=== PATIENT | female | born 1935 | race Caucasian/White ===

== ENCOUNTER → 2016-09-20 | Outpatient (CLI) | payer OTHER, MEDICARE ==
[~2016-09-20] MED LIST: ASPCH81X PO; CHOL20009 PO; LEVO50TA6 PO; LISI-729 PO
[2016-09-20 14:51] LABS: BLOOD UREA NITROGEN 18 mg/dl (7-18); BUN/CREATININE RATIO 21.6 (10-20); CALCIUM 9.4 mg/dl (8.5-10.1); CARBON DIOXIDE 33 mmol/L (21-32); CHLORIDE 108 mmol/L (98-107); CREATININE 0.81 mg/dl (0.60-1.20); GLUCOSE 96 mg/dl (70-99); POTASSIUM 4.1 mmol/L (3.5-5.1); SODIUM 144 mmol/L (136-145)
== END | disposition home or self-care (01) ==
LOC: C.LABBC 09:44
PROVIDERS: ATTEND Internal Medicine
DX: E03.9 Hypothyroidism, unspecified (principal); I10 Essential (primary) hypertension; E55.9 Vitamin D deficiency, unspecified

== ENCOUNTER → 2016-09-30 | Outpatient (CLI) | payer OTHER, MEDICARE ==
--- NOTE | 2016-10-01 08:50 | DIAGNOSTIC IMAGING REPORT ---
THYROID ULTRASONOGRAPHY CLINICAL HISTORY: Thyroid nodule COMPARISON STUDY: 04/19/2016 FINDINGS: The right lobe of the thyroid measures 36 x 12 x 12 mm. The left lobe of the thyroid measures 30 x 8 x 10 mm. Both lobes of thyroid are heterogeneous in echotexture. The previously described right lobe thyroid nodule appears relatively isoechoic to the remaining gland. It is unclear whether this represents a true mass. This area measures 8 mm in diameter. IMPRESSION: 1. Diffusely heterogeneous thyroid gland 2. The previously described nodule is more difficult to discern on today's study and is relatively isoechoic with the remainder of the gland. It measures 8 mm in long axis. Electronically signed by: Josiah Richardson M.D. 10/01/2016 8:49 AM Dictated Date/Time: 10/01/2016 8:47 AM
== END | disposition home or self-care (01) ==
LOC: C.ULTR 15:14
PROVIDERS: ATTEND Internal Medicine
DX: E04.1 Nontoxic single thyroid nodule (principal)

== ENCOUNTER → 2016-10-15 | Outpatient (CLI) | payer OTHER, MEDICARE ==
--- NOTE | 2016-10-16 14:53 | MAMMOGRAPHY REPORT ---
BILATERAL DIGITAL SCREENING MAMMOGRAM WITH CAD: 10/15/2016 CLINICAL HISTORY: Routine screening. Patient has no complaints. TECHNIQUE: Bilateral CC and MLO views were obtained. Current study was also evaluated with a Comput er Aided Detection (CAD) system. COMPARISON: Comparison is made to exams dated: 04/18/2015 mammogram, 04/14/2014 mammogram, 04/13/20 13 mammogram, 04/09/2012 mammogram, 03/12/2011 mammogram, and 03/08/2010 mammogram - [facility]. BREAST COMPOSITION: There are scattered areas of fibroglandular density in both breasts. FINDINGS: There are mild vascular calcifications in both breasts. A benign rim calcification withi n the left breast. No new suspicious mass, architectural distortion or cluster of microcalcification s is seen. IMPRESSION: ACR BI-RADS CATEGORY 2: BENIGN There is no mammographic evidence of malignancy. A 1 year screening mammogram is recommended. The p atient will receive written notification of the results. Approximately 10% of breast cancers are not detected with mammography. A negative mammographic repor t should not delay biopsy if a clinically suggestive mass is present. Mary Lou Carter M.D. ay/:10/15/2016 16:32:15 Aircraft Lay Out Worker: Tatyana WERNER(R)(M), [facility] letter sent: Normal 1/2 BI-RADS Code: ACR BI-RADS Category 2: Benign
== END | disposition home or self-care (01) ==
LOC: C.MAMM 14:35
PROVIDERS: ATTEND Internal Medicine
DX: Z12.31 Encounter for screening mammogram for malignant neoplasm of breast (principal)

== ENCOUNTER → 2017-09-30 | Outpatient (CLI) | payer OTHER, MEDICARE ==
[2017-09-30 11:00] LABS: HEMATOCRIT 41.2 % (37-47); HEMOGLOBIN 13.6 g/dL (12.0-16.0); MEAN CELL VOLUME 93.6 fL (80-100); MEAN CORPUSCULAR HEMOGLOBIN 30.9 pg (25-34); MEAN PLATELET VOLUME 10.6 fL (7.4-10.4); PLATELET COUNT 225 K/uL (130-400); RED CELL DISTRIBUTION WIDTH CV 13.4 % (11.5-14.5); RED CELL DISTRIBUTION WIDTH SD 45.9 fL (36.4-46.3); WHITE BLOOD COUNT 5.28 K/uL (4.8-10.8)
[2017-09-30 14:15] LABS: BLOOD UREA NITROGEN 9 mg/dl (7-18); CARBON DIOXIDE 30 mmol/L (21-32); CREATININE 0.82 mg/dl (0.60-1.20); GLUCOSE 86 mg/dl (70-99); POTASSIUM 3.8 mmol/L (3.5-5.1); SODIUM 139 mmol/L (136-145)
== END | disposition home or self-care (01) ==
LOC: C.LABBC 09:18
PROVIDERS: ATTEND Internal Medicine
DX: I10 Essential (primary) hypertension (principal); E03.9 Hypothyroidism, unspecified; D64.9 Anemia, unspecified

== ENCOUNTER 2024-01-15 05:04 | Observation (INO) ==
[2024-01-15] MEDS: METOPROLOL TARTRATE 1 MG/ML VIAL IV STA (06:16)
[2024-01-15 06:18] LABS: Alanine Aminotransferase 17 U/L (7-52); Albumin Level 4.4 gm/dl (3.4-5.0); Alkaline Phosphatase 47 U/L (34-104); Anion Gap 9 (3-11); BUN Creatinine Ratio 16.2 (10-20); Bilirubin,Total 1.5 mg/dl (0.2-1.0); Blood Urea Nitrogen 12 mg/dl (6-23); Calcium 9.4 mg/dl (8.6-10.3); Carbon Dioxide 23 mmol/L (21-32); Chloride 101 mmol/L (98-107); Creatinine Clr Calc Pharmacy 41.7 ml/min; Est GFR (African American) 83.2 ml/min; Est GFR (Non-African American) 71.8 ml/min; Globulin 2.2 gm/dl (2.5-4.0); Glucose 103 mg/dl (70-99(Fasting)); Lipase 17 U/L (11-82); Sodium 133 mmol/L (136-145); Total Protein 6.6 gm/dl (6.0-8.3); Troponin I High Sensitivity 9.2 pg/ml (0-14)
--- NOTE | 2024-01-15 06:19 | Emergency Department Note ---
Impression & Plan Bright red rectal bleeding, Atrial fibrillation with rapid ventricular response, Colitis ED Provider Note Provider: Sin Romano MD DATE OF SERVICE: 01/14/2024 CHIEF COMPLAINT: Rectal bleeding abdominal cramping HISTORY OF PRESENT ILLNESS: Patient is a 88-year-old female history of hypertension, hypothyroidism, paroxysmal atrial fibrillation on Eliquis presenting here today from home with reports that yesterday afternoon began develop some abdominal cramping and nausea. Was golfing during this time and seen by EMS. Declined transfer and came home. No sick contacts or recent travel. No syncope or trauma. Reports ongoing cramping and some nausea but no vomiting last evening. Diarrhea developed multiple recurrent bloody bowel movements. Again no syncope chest pain or shortness of breath. Did not take her evening Eliquis which she is normally on as she was having this bleeding. Overnight bloody diarrhea continued and given this came in for evaluation as she did not want to "run out of blood ". While here did go to the bathroom and have a small bloody stool. PAST MEDICAL HISTORY: As noted above MEDICATIONS: Reviewed home medications on Eliquis but did not take last evening SOCIAL HISTORY: PHYSICAL EXAM: GENERAL: alert and oriented in no acute distress on stretcher, at bedside Head: normocephalic and atraumatic EYES: No injection, discharge or icterus. NECK: Trachea midline. ENT: Mucous membranes pink and moist. LUNGS: Airway patent. No retractions. Breath sounds clear HEART: Irregular tachycardic rate and rhythm. No chest wall tenderness ABDOMEN: Soft no guarding. Slight mid tenderness without peritonitis. SKIN: Acyanotic, warm, dry, without rashes EXTREMITIES: Without swelling, tenderness or deformity NEUROLOGICAL: No focal deficits. No aphasia. No facial droop or slurred speech. Ambulatory. EK bpm normal sinus rhythm no PVC or PAC. No acute ST segment elevation depression with some lateral inferior nonspecific T wave changes and ST segment changes. QTc 432. EK bpm. Atrial fibrillation with rapid ventricular spots. Some T wave changes and slight lateral/inferior ST depression without acute ST segment elevation and QTc of 459. EK bpm sinus rhythm occasional PAC, no acute ST segment elevation depression with some slight inferior lateral ST/T wave changes. CONTINUOUS CARDIAC MONITORING: was ordered and showed a heart rate of 80s to 160s bpm in normal sinus rhythm and later A-fib to normal sinus rhythm in the 60s-70s Patient's laboratory studies and imaging reviewed. Differential includes Diverticulosis, AVM, coagulopathy, colitis, inflammatory bowel disease, malignancy, Ladan-Rodriguez tear, esophagitis, peptic ulcer disease, variceal bleed, gastritis, epistaxis, fissure, hemorrhoids, as well as other pathologies. IMPRESSION/MEDICAL DECISION MAKING: Patient well-appearing. Not hypotensive. While here had a bloody bowel movement then she developed rapid A-fib. Bright red blood in the toilet but not a exceedingly large amount. Patient did not take her evening dose of Eliquis --helpful in the situation. Given some IV metoprolol help with rate control minimal effect and tried some diltiazem bolus. Blood work obtained. Will send for CT scan and stool testing ordered to look for any infectious cause of her symptoms and exclude diverticulitis. IV Protonix dose given although seems less likely be upper GI bleed. Patient without active chest pain or shortness of breath. Blood work here without severe hyponatremia or elevated BUN. Normal creatinine. No significant transaminitis. Troponin normal and no evidence of pancreatitis on initial labs. CBC returns slight leukocytosis of 12.3. Hemoglobin stable at 13.2. Platelets in the normal range. Likely no significant new anemia. CT the abdomen pelvis shows distal transverse colon/splenic flexure/descending colon thickening consistent with colitis nonspecific in nature without evidence of free air, abscess, or pneumatosis. No diverticulitis noted. Reassessment the patient denies any real significant abdominal pain and denies nausea. Patient without any severe abdominal pain and again anticoagulated I doubt this represents ischemic bowel. Diltiazem bolus was effective in converting the patient back to a sinus rhythm without the need for diltiazem infusion. With patient's anticoagulated status and ongoing rectal bleed as well as age and comorbidities recommended further observation here. Hospitalist team was consulted. DIAGNOSIS: Rectal bleeding, colitis, rapid A-fib, long-term anticoagulation DISPOSITION: Hospitalist will evaluate Patient was agreeable with this plan. Critical Care I have personally spent 32 minutes of critical care time in the direct management of this patient. This includes bedside care, interpretation of diagnostic studies, and testing, discussion with consultants, patient, and family members, and other required patient management activities. These 32 minutes is in excess of all separately billable procedures. Past Med/Surg History Problem List (Updated 01/15/24 @ 06:58 by Sin Romano M.D.) Colitis (Acute) Atrial fibrillation with rapid ventricular response (Acute) Bright red rectal bleeding (Acute) Holter monitor, abnormal Paroxysmal A-fib Altered heart rate Bradycardia Abnormal ankle brachial index (Acute) Chronic venous insufficiency Wound of right lower extremity Wound of left lower extremity Right patellofemoral syndrome Right knee DJD Vitamin D deficiency (Acute) Spinal stenosis (Acute) Solitary thyroid nodule (Acute) SCC (squamous cell carcinoma) (Acute) Osteopenia (Acute) Lichen simplex chronicus (Chronic) Hypothyroidism (Acute) Hypertension (Acute) Basal cell carcinoma of skin of face (Acute) Anemia (Acute) Actinic keratosis (Acute) Medical History Elevated vitamin B12 level Non-healing wound of right lower extremity Fx upper humerus-closed History of basal cell carcinoma History of SCC (squamous cell carcinoma) of skin Dermatitis Angioma Surgical History Status post Mohs surgery H/O blepharoplasty H/O oral surgery Humerus surgical neck fracture History of hysterectomy Hx of tonsillectomy Family History Father Myocardial infarction Heart disease Mother Hypertension Grandfather (Paternal) Diabetes Denies family history of Colon cancer Ovarian cancer Prostate cancer Breast cancer Social History Smoking Status: Never smoker Second Hand Exposure: No; Do You Dip or Chew Tobacco: No; Hx Alcohol Use: Yes (2 mixed drinks daily ) Alcohol Intake Frequency: 4 or More x per/Week Hx Substance Use: No Preferred Language: Austrian Visual Impairment: No Limitations Hearing Ability: Normal marital status: Current Living Situation: Spouse current occupational status: retired 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 Feels Safe at Home: Yes Childhood Exposure to Second-Hand Smoke: Yes Dental Care, Regularly: Yes Physical Activity Frequency: Daily Seatbelt Use: always Sunscreen Use: Yes Allergies Allergies Allergy/AdvReac Type Severity Reaction Status Date / Time codeine AdvReac Unknown vomiting Verified 01/06/24 13:27 Home Meds Home Medications Medication Instructions Recorded Confirmed cholecalciferol (vitamin D3) 50 2,000 units PO DAILY #30 caps 12/31/18 01/06/24 mcg (2,000 unit) capsule cyanocobalamin (vitamin B-12) 2,000 mcg PO .COMPLEX 11/07/22 01/06/24 2,000 mcg tablet,extended release Previous Rx's Medication Instructions Recorded metoprolol succinate 25 mg 25 mg PO DAILY #90 tabs 07/07/23 tablet,extended release 24 hr betamethasone dipropionate 0.05 % 1 applic topical BID #15 grams 09/04/23 topical ointment lisinopril 10 mg tablet 10 mg PO DAILY #30 tabs 10/02/23 levothyroxine 75 mcg tablet 75 mcg PO DAILY #30 tabs 12/08/23 apixaban 2.5 mg tablet (Eliquis) 2.5 mg PO BID #180 tabs 01/06/24 Results & Data (ED) Vital Signs Vital Signs - 24 hr 01/15/24 05:06 01/15/24 05:21 01/15/24 05:34 Temperature 36.5 C Temperature Source Temporal Artery Scan Pulse Rate 82 88 Pulse Rate [Right Finger] Pulse Rhythm Regular Pulse Strength Normal Pulse Strength [Right Finger] Respiratory Rate 16 Respiratory Effort / Characteristics Non-Labored Spontaneous Respiratory Depth Normal Respiratory Pattern Regular Blood Pressure 143/88 H Blood Pressure [Right Arm] Blood Pressure Mean 106 Blood Pressure Mean [Right Arm] Blood Pressure Position Sitting Blood Pressure Position [Right Arm] Pulse Oximetry 99 99 Oxygen Delivery Method Room Air Room Air Sepsis Recent Fever Within 48 Hours No Sepsis New/Unexplained Change in Mental Status N/A Sepsis Action Taken by Nursing No Action Required 01/15/24 06:06 01/15/24 06:08 01/15/24 06:08 Temperature Temperature Source Pulse Rate 140 H 145 H Pulse Rate [Right Finger] Pulse Rhythm Pulse Strength Pulse Strength [Right Finger] Respiratory Rate 18 Respiratory Effort / Characteristics Respiratory Depth Respiratory Pattern Blood Pressure 154/119 H 154/119 H Blood Pressure [Right Arm] Blood Pressure Mean 126 126 Blood Pressure Mean [Right Arm] Blood Pressure Position Blood Pressure Position [Right Arm] Pulse Oximetry 95 Oxygen Delivery Method Sepsis Recent Fever Within 48 Hours Sepsis New/Unexplained Change in Mental Status Sepsis Action Taken by Nursing 01/15/24 06:16 01/15/24 06:22 01/15/24 06:50 Temperature Temperature Source Pulse Rate 171 H 140 H 97 H Pulse Rate [Right Finger] Pulse Rhythm Pulse Strength Pulse Strength [Right Finger] Respiratory Rate 18 Respiratory Effort / Characteristics Respiratory Depth Respiratory Pattern Blood Pressure 154/119 H 150/106 H Blood Pressure [Right Arm] Blood Pressure Mean 121 Blood Pressure Mean [Right Arm] Blood Pressure Position Blood Pressure Position [Right Arm] Pulse Oximetry 98 Oxygen Delivery Method Sepsis Recent Fever Within 48 Hours Sepsis New/Unexplained Change in Mental Status Sepsis Action Taken by Nursing 01/15/24 06:59 Temperature Temperature Source Pulse Rate Pulse Rate [Right Finger] 69 Pulse Rhythm Pulse Strength Pulse Strength [Right Finger] Normal Respiratory Rate 17 Respiratory Effort / Characteristics Non-Labored Respiratory Depth Normal Respiratory Pattern Regular Blood Pressure Blood Pressure [Right Arm] 117/69 Blood Pressure Mean Blood Pressure Mean [Right Arm] 85 Blood Pressure Position Blood Pressure Position [Right Arm] Lying Pulse Oximetry 97 Oxygen Delivery Method Room Air Sepsis Recent Fever Within 48 Hours Sepsis New/Unexplained Change in Mental Status Sepsis Action Taken by Nursing Laboratory Data 01/15/24 05:30 01/15/24 05:59 Lab Results 01/15/24 01/15/24 Range/Units 05:30 05:59 WBC 12.37 H (4.8-10.8) K/ul RBC 4.24 (4.20-5.40) M/uL Hgb 13.2 (12.0-16.0) g/dl Hct 38.8 (37.0-47.0) % MCV 91.5 (80.0-100.0) fL MCH 31.1 (25.0-34.0) pg MCHC 34.0 (32.0-36.0) g/dL RDW Std Deviation 41.2 (36.4-46.3) fL RDW Coeff of Sunita 12.6 (11.5-14.5) % Plt Count 151 (130-400) K/uL MPV 10.8 (9.4-12.4) fL Immature Gran % (Auto) 0.3 % Neut % (Auto) 76.5 % Lymph % (Auto) 16.0 % [place] % (Auto) 6.7 % Eos % (Auto) 0.3 % Baso % (Auto) 0.2 % Neut # (Auto) 9.45 H (1.40-6.50) K/uL Lymph # (Auto) 1.98 (1.20-3.40) K/uL [place] # (Auto) 0.83 H (0.11-0.59) K/uL Eos # (Auto) 0.04 (0.00-0.50) K/uL Baso # (Auto) 0.03 (0.00-0.20) K/uL Immature Gran # (Auto) 0.04 (0.01-0.20) K/uL Platelet Estimate Decreased L (Normal) RBC Morphology Unremarkable PT Cancelled 11.0 INR Cancelled 1.0 APTT Cancelled 27 PTT Ratio Cancelled 1.0 Sodium 133 L (136-145) mmol/L Potassium TNP 3.7 Chloride 101 (98-107) mmol/L Carbon Dioxide 23 (21-32) mmol/L Anion Gap 9 (3-11) BUN 12 (6-23) mg/dl Creatinine 0.74 (0.6-1.2) mg/dl Est Cr Clr Drug Dosing 41.7 ml/min Est GFR ( Amer) 83.2 ml/min Est GFR (Non-Af Amer) 71.8 ml/min BUN/Creatinine Ratio 16.2 (10-20) Glucose 103 H (70-99(Fasting)) mg/dl Calcium 9.4 (8.6-10.3) mg/dl Total Bilirubin 1.5 H (0.2-1.0) mg/dl AST TNP 18 ALT 17 (7-52) U/L Alkaline Phosphatase 47 (34-104) U/L Troponin I High Sens 9.2 (0-14) pg/ml Total Protein 6.6 (6.0-8.3) gm/dl Albumin 4.4 (3.4-5.0) gm/dl Globulin 2.2 L (2.5-4.0) gm/dl Albumin/Globulin Ratio 2.0 (0.9-2) Lipase 17 (11-82) U/L Administered Medications Sodium Chloride (Nss) 500 mls @ 999 mls/hr IV .Q31M ONE Stop: 01/15/24 07:25 Last Admin: 01/15/24 07:01 Dose: 999 mls/hr Documented By: SHB Discontinued Medications Diltiazem HCl (Diltiazem Hcl 5 Mg/Ml 5 Ml Vial) 15 mg IV NOW STA Stop: 01/15/24 06:21 Last Admin: 01/15/24 06:23 Dose: 15 mg Documented By: PATRICIA Co-signed By: CAM Pantoprazole Sodium 80 mg/ (Dextrose) 120 mls @ 480 mls/hr IV ONE STA Stop: 01/15/24 06:25 Last Infusion: 01/15/24 07:04 Dose: Infused Documented By: Admin: 01/15/24 06:45 Dose: 480 mls/hr Documented By: PATRICIA Ioversol (Optiray 320 100ml) 100 ml IV ONCE ONE Stop: 01/15/24 06:43 Last Admin: 01/15/24 06:42 Dose: 93 ml Documented By: [place] Metoprolol Tartrate (Metoprolol Tartrate 1 Mg/Ml Vial) 5 mg IV NOW STA Stop: 01/15/24 06:12 Last Admin: 01/15/24 06:16 Dose: 5 mg Documented By: PATRICIA Miscellaneous (Stat Iv Infusion Titration Per Protocol) 1 each N/A NOW STA Stop: 01/15/24 06:21 Last Admin: 01/15/24 07:11 Dose: Not Given Documented By: BECK Imaging Data Radiologist's Impression: Abdomen/Pelvis CT 01/15/24 05:12 CT OF THE ABDOMEN AND PELVIS WITH CONTRAST CLINICAL HISTORY: Rectal bleeding. Abdominal pain. COMPARISON STUDY: None. TECHNIQUE: Following IV administration of 93 mL of Optiray, axial images of the abdomen and pelvis were obtained from the lung bases to the proximal femurs. Images were reviewed in the axial, sagittal, and coronal planes. IV contrast was administered without complication. Automated exposure control was utilized for the study. A dose lowering technique was utilized adhering to the principles of ALARA. CT DOSE: 496. mGy.cm FINDINGS: Lung bases are unremarkable. No pneumatosis, free air or portal venous gas is present. There are no hepatic lesions. There is no biliary or pancreatic ductal dilatation. Spleen, adrenal glands, kidneys and pancreas are unremarkable. A few subcentimeter right renal lesions likely reflect cysts. There is no hydronephrosis. There is no biliary or pancreatic ductal dilatation. There is moderate circumferential wall thickening of the distal transverse colon, the splenic flexure of the colon and the descending colon with pericolonic stranding and fluid. There is no free air or abscess. There is sigmoid diverticulosis without evidence for acute diverticulitis. A small amount of fluid within the pelvis is present. There is no evidence for a bowel obstruction. The caliber of the abdominal aorta is normal. There is moderate atherosclerotic plaque at the origins of multiple vessels which results in at least moderate stenosis of the bilateral renal arteries. There is moderate focal narrowing of the proximal superior mesenteric artery due to noncalcified atherosclerotic plaque. There is moderate narrowing of the celiac axis possibly due to median arcuate ligament. Inferior mesenteric artery is patent. No vessel occlusion is identified. IMPRESSION: 1. Moderate circumferential wall thickening with pericolonic stranding and fluid involving the distal transverse colon, splenic flexure of the colon and the descending colon. This represents a colitis. Although nonspecific, the distribution raises the possibility of ischemic colitis. No free air or abscess. No pneumatosis. 2. Small amount of fluid within the pelvis. 3. Sigmoid diverticulosis. No evidence for acute diverticulitis. ACT 112: Negative or not required by law. Electronically signed by: Luis M Jesus M.D. 01/15/2024 6:51 AM Discharge Plan Visit Data Chief Complaint: Rectal Bleed Stated Complaint: RECTAL BLEEDING ED Provider: Sin Romano Discharge Problem: Bright red rectal bleeding, Atrial fibrillation with rapid ventricular response, Colitis Patient Disposition: Being Evaluated by Hospitalist Forms Stand Alone Forms: [facility] Prescriptions Prescriptions: No Action levothyroxine 75 mcg tablet 75 mcg PO DAILY Qty: 30 2RF cyanocobalamin (vitamin B-12) 2,000 mcg tablet extended release 2,000 mcg PO .COMPLEX Rx Instructions: 2,000 mcg orally 3 times a week; cholecalciferol (vitamin D3) 2,000 unit capsule 2,000 units PO DAILY Qty: 30 Eliquis 2.5 mg tablet 2.5 mg PO BID Qty: 180 3RF metoprolol succinate 25 mg tablet extended release 24 hr 25 mg PO DAILY Qty: 90 3RF betamethasone dipropionate 0.05 % ointment 1 applic TOP BID Qty: 15 0RF Rx Instructions: Apply to area of the right lower leg twice daily x 2 weeks as directed. lisinopril 10 mg tablet 10 mg PO DAILY Qty: 30 5RF Referrals Referrals: Salinas Angela MD [Primary Care Provider] -
[2024-01-15] MEDS: dilTIAZem HCl 5 MG/ML 5 ML VIAL IV STA (06:23)
[2024-01-15] MEDS ORDERED: dilTIAZem HCL 125 MG in DEXTROSE 5% 100 ML IV SCH (06:30)
[2024-01-15 06:32] LABS: Basophils # (auto) 0.03 K/uL (0.00-0.20); Basophils % (auto) 0.2 %; Eosinophils # (auto) 0.04 K/uL (0.00-0.50); Eosinophils % (auto) 0.3 %; Hematocrit (blood only) 38.8 % (37.0-47.0); Hemoglobin 13.2 g/dl (12.0-16.0); Immature Granulocytes # (auto) 0.04 K/uL (0.01-0.20); Immature Granulocytes % (auto) 0.3 %; Lymphocytes # (auto) 1.98 K/uL (1.20-3.40); Mean Corpuscular Hemoglobin 31.1 pg (25.0-34.0); Mean Corpuscular Volume 91.5 fL (80.0-100.0); Mean Platelet Volume 10.8 fL (9.4-12.4); Monocytes # (auto) 0.83 K/uL (0.11-0.59); Monocytes % (auto) 6.7 %; Neutrophils # (auto) 9.45 K/uL (1.40-6.50); Neutrophils % (auto) 76.5 %; Platelet Count 151 K/uL (130-400); Platelet Estimate Decreased (Normal); RBC Morphology Unremarkable; RDW Coefficient of Variation 12.6 % (11.5-14.5); RDW Standard Deviation 41.2 fL (36.4-46.3); Red Blood Count 4.24 M/uL (4.20-5.40); White Blood Count 12.37 K/ul (4.8-10.8)
[2024-01-15 06:33] LABS: Potassium 3.7 mmol/L (3.5-5.1)
[2024-01-15 06:37] LABS: Partial Thromboplastin Time 27 Seconds (21-31)
[2024-01-15] MEDS: OPTIRAY 320 100ml IV ONE (06:42)
[2024-01-15] MEDS: PANTOprazole 80 MG in DEXTROSE 5% 100 ML IV STA (06:45)
--- NOTE | 2024-01-15 06:54 | CT Scan Report ---
CT OF THE ABDOMEN AND PELVIS WITH CONTRAST CLINICAL HISTORY: Rectal bleeding. Abdominal pain. COMPARISON STUDY: None. TECHNIQUE: Following IV administration of 93 mL of Optiray, axial images of the abdomen and pelvis we re obtained from the lung bases to the proximal femurs. Images were reviewed in the axial, sagittal, and coronal planes. IV contrast was administered without complication. Automated exposure control wa s utilized for the study. A dose lowering technique was utilized adhering to the principles of ALARA . CT DOSE: 496. mGy.cm FINDINGS: Lung bases are unremarkable. No pneumatosis, free air or portal venous gas is present. Ther e are no hepatic lesions. There is no biliary or pancreatic ductal dilatation. Spleen, adrenal glands , kidneys and pancreas are unremarkable. A few subcentimeter right renal lesions likely reflect cysts . There is no hydronephrosis. There is no biliary or pancreatic ductal dilatation. There is moderate circumferential wall thickening of the distal transverse colon, the splenic flexure of the colon and the descending colon with pericolonic stranding and fluid. There is no free air or abscess. There is sigmoid diverticulosis without evidence for acute diverticulitis. A small amount of fluid within the pelvis is present. There is no evidence for a bowel obstruction. The caliber of the abdominal aorta i s normal. There is moderate atherosclerotic plaque at the origins of multiple vessels which results i n at least moderate stenosis of the bilateral renal arteries. There is moderate focal narrowing of th e proximal superior mesenteric artery due to noncalcified atherosclerotic plaque. There is moderate n arrowing of the celiac axis possibly due to median arcuate ligament. Inferior mesenteric artery is pa tent. No vessel occlusion is identified. IMPRESSION: 1. Moderate circumferential wall thickening with pericolonic stranding and fluid involving the distal transverse colon, splenic flexure of the colon and the descending colon. This represents a colitis. Although nonspecific, the distribution raises the possibility of ischemic colitis. No free air or abs cess. No pneumatosis. 2. Small amount of fluid within the pelvis. 3. Sigmoid diverticulosis. No evidence for acute diverticulitis. ACT 112: Negative or not required by law. Electronically signed by: Luis M Jesus M.D. 01/15/2024 6:51 AM
[2024-01-15] MEDS: SODIUM CHLORIDE 0.9% 500 ML IV ONE (07:01)
[2024-01-15] MEDS: STAT IV Infusion **Titration per Protocol STA (07:11)
--- NOTE | 2024-01-15 08:47 | History & Physical Report ---
Date of Service January 15, 2024 Assessment & Plan (1) Colitis: (2) Atrial fibrillation with rapid ventricular response: (3) Bright red rectal bleeding: Plan: had fairly intense abdominal pain followed 4 hours later by bloody bowel movements and pain has been gone. History, as well as CT scan fit the most with ischemic colitis. Episode essentially resolved before I saw herafter her episode of rectal bleeding. No ongoing bleeding watching her all day, h emodynamically stable, benign exam. She was strongly desirous of going homewe discussed ongoing observation in the hospital into tomorrow to ensure no recurrent bleeding and no evolution of colitis symptoms versus home with close outpatient follow-up and a low threshold to return to the hospital with any worsening of pain or recurrence of bleedingand she quite reasonable but also quite strongly felt the need to go home. - Augmentin x 5 days - hold Eliquis for nowanticipate holding for about a week, but obviously this will be better determined based on how she is doing and outpatient follow-up - given her age, PCP discussion about risk/benefit of follow-up colonoscopy - return to the hospital with recurrence of pain or bleeding - safe/stable for home (4) Hypothyroidism: (5) Hypertension: Plan (1) Rectal Bleeding - CT A/P: Moderate circumferential wall thickening with pericolonic stranding and fluid involving the distal transverse colon, splenic flexure of the colon and the descending colon. This represents a colitis. Although nonspecific, the distribution raises the possibility of ischemic colitis. No free air or abscess. No pneumatosis. Small amount of fluid within the pelvis. Sigmoid diverticulosis. No evidence for acute diverticulitis. - Consider ischemic colitis vs. diverticulosis vs. internal hemorrhoids vs. infectious gastroenteritis. Low concern for IBD as patient is 88 yo. - Stop Protonix 40 mg BID, as BUN is not elevated and blood appears to be lower GI (no melena) - Trend H&H q6h - Ordered type and cross - Low suspicion for need to transfuse, but in the event that Hgb downtrends to <7.0 or patient becomes symptomatic, would transfuse if medically necessary - Hold antihypertensive lisinopril 10 mg PO daily - As we obtained more of patient's history, it does sound like she had an episode of acute, severe abdominal pain just prior to her first BM. Given this history in addition to her CT A/P findings, we will treat as ischemic colitis. - Patient was observed on the unit for the day with no more episodes of bloody BM. Hgb was 13.2 on admission and 12.7 in late morning. Mild leukocytosis of 12.4 on admission. - She would really like to go home and appears stable. We will give her food and see how she handles it. If she handles the food well, she can be discharged home. She will be sent home on Amoxicillin/Clavulanate 875mg BID for etiology of ischemic colitis. We have discussed that she would return to the ED in case of worsening abdominal pain or repeat rectal bleeding. (2) Afib with RVR - Chronically on Eliquis 2.5 mg PO BID, but she did not take it last night d/t rectal bleeding - will continue to hold since pt is admitted for rectal bleed - Also takes home med of metoprolol succinate 25 mg PO daily - Was given a diltiazem bolus and metoprolol tartrate 5 mg - Patient's heart rhythm is now stable and NSR, so no need to continue diltiazem drip at this time. Will continue home med metoprolol succinate 25 mg PO daily while admitted. - Advised patient to not restart eliquis d/t rectal bleeding. She should stay off of eliquis for 1 week. We would like her to f/u with her PCP in about 1 week. If her PCP decides she should restart eliquis sooner, we would trust that to their discretion. (3) Hypothyroidism - Continue levothyroxine 75 mcg QD (4) Hypertension - Held lisinopril 10 mg PO daily while admitted - She can resume this medication upon discharge Diet: regular diet Code: full DVT ppx: SCDs Dispo: currently admitted to Med Surg/Tele, potential d/c later today History of Present Illness Chief Complaint: rectal bleeding Primary Care Provider: Salinas Angela MD Tere is an 88 year old female with PMH of atrial fibrillation, chronic venous insufficiency, abnormal KRISSY, hypothyroidism, thyroid nodule, spinal stenosis, SCC, basal cell carcinoma of face presenting with chief concern of bright red rectal bleeding which began yesterday afternoon at 4 PM. Reports she was playing golf with her friends until early afternoon, and toward the end of golf she began experiencing abdominal cramping and nausea, then had a large orange bowel movement - there was no micheal blood in her BM at that time. However, does report an episode of severe abdominal pain just prior to the bowel movement, in which she was bent over in pain, which was abated by the BM. She was evaluated by EMS and was stable, so she did not present to the hospital at that time. After going home, around 4 PM, she began having diarrhea with bright red blood. For the next 11 hours, she had about 1 BM with blood per hour (11 total BMs) before presenting to the ED around 4 AM this morning (01/14). She is on Eliquis for Afib, but she did not take her Eliquis last night d/t bleeding. Denies vomiting, rectal pain, fever, chest pain, SOB, lightheadedness, syncope, dizziness, recent illnesses, sick contacts. She has never had historical episodes of rectal bleeding. No family history of colon cancer. Her last colonoscopy was about 25 years ago, reports it was normal. She has no smoking history. She drinks about 1 drink per night. She is a full code. At time of our evaluation, she feels well. She is no longer experiencing abdominal pain/cramping. She has had 1 BM with blood since presenting to the ER, at which time she went into Afib with RVR. She was given a bolus of diltiazem, and her rhythm has been stable since. Allergies Allergy/AdvReac Type Severity Reaction Status Date / Time codeine AdvReac Unknown vomiting Verified 01/06/24 13:27 Home Medications Medication Instructions Recorded Confirmed Type cholecalciferol (vitamin D3) 50 2,000 units PO DAILY #30 caps 12/31/18 01/15/24 History mcg (2,000 unit) capsule cyanocobalamin (vitamin B-12) 2,000 mcg PO .COMPLEX 11/07/22 01/15/24 History 2,000 mcg tablet,extended release metoprolol succinate 25 mg 25 mg PO DAILY #90 tabs 07/07/23 01/15/24 Rx tablet,extended release 24 hr betamethasone dipropionate 0.05 % 1 applic topical BID #15 grams 09/04/23 01/15/24 Rx topical ointment lisinopril 10 mg tablet 10 mg PO DAILY #30 tabs 10/02/23 01/15/24 Rx apixaban 2.5 mg tablet (Eliquis) 2.5 mg PO BID #180 tabs 01/06/24 01/15/24 Rx amoxicillin 875 mg-potassium 1 tab PO BIDM #10 tabs 01/15/24 Rx clavulanate 125 mg tablet levothyroxine 75 mcg tablet 75 mcg PO DAILY #30 tabs 01/15/24 Rx Past Med/Surg History Problem List (Updated 01/15/24 @ 06:58 by Sin Romano M.D.) Colitis (Acute) Atrial fibrillation with rapid ventricular response (Acute) Bright red rectal bleeding (Acute) Holter monitor, abnormal Paroxysmal A-fib Altered heart rate Bradycardia Abnormal ankle brachial index (Acute) Chronic venous insufficiency Wound of right lower extremity Wound of left lower extremity Right patellofemoral syndrome Right knee DJD Vitamin D deficiency (Acute) Spinal stenosis (Acute) Solitary thyroid nodule (Acute) SCC (squamous cell carcinoma) (Acute) Osteopenia (Acute) Lichen simplex chronicus (Chronic) Hypothyroidism (Acute) Hypertension (Acute) Basal cell carcinoma of skin of face (Acute) Anemia (Acute) Actinic keratosis (Acute) Medical History Elevated vitamin B12 level Non-healing wound of right lower extremity Fx upper humerus-closed History of basal cell carcinoma History of SCC (squamous cell carcinoma) of skin Dermatitis Angioma Surgical History Status post Mohs surgery H/O blepharoplasty H/O oral surgery Humerus surgical neck fracture History of hysterectomy Hx of tonsillectomy Family History Father Myocardial infarction Heart disease Mother Hypertension Grandfather (Paternal) Diabetes Denies family history of Colon cancer Ovarian cancer Prostate cancer Breast cancer Social History Smoking Status: Never smoker Second Hand Exposure: No; Do You Dip or Chew Tobacco: No; Tobacco Cessation Education Requested by Patient: No Hx Alcohol Use: Yes Alcohol type: other Alcohol Intake Frequency: 4 or More x per/Week Hx Substance Use: No Preferred Language: [place] Communication Ability: Effective Visual Impairment: No Limitations Hearing Ability: Normal Emergency Room Doctor Required: No Beliefs That Will Affect Care: None marital status: Current Living Situation: Spouse current occupational status: retired 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 Other Information That Helps Us Care for You: No Feels Safe at Home: Yes Safety Concerns: Feels Safe At This Time Childhood Exposure to Second-Hand Smoke: Yes Dental Care, Regularly: Yes Physical Activity Frequency: Daily Seatbelt Use: always Sunscreen Use: Yes Assistive Devices: Glasses Review of Systems Review of Systems: As noted in HPI. Physical Exam Physical Exam: General: no acute distress; pleasant affect; non-toxic appearing; well- nourished; cooperative HEENT: normocephalic, atraumatic; no scleral icterus; vision and hearing grossly intact; moist mucous membranes; no mucosal or conjunctival pallor Neck: supple; full ROM Skin: warm, no rashes, or erythema noted CV: RRR; S1/S2 normal; no murmurs/rubs/gallops; pulses intact and symmetric at DP and PT Lungs: no acute respiratory distress; symmetrical chest wall expansion; lungs CTAB ABD: Soft, nontender; no distention MSK: No bilateral LE edema Neuro: A&Ox3; fluent speech; no focal deficits Psych: normal mood and affect Results & Data Results & Data Vital Signs (Past 12 Hours) Vital Signs Temp Pulse Pulse Resp BP BP Pulse Ox 01/15/24 07:42 74 17 123/77 97 01/15/24 07:42 74 17 97 01/15/24 06:59 69 17 117/69 97 01/15/24 06:50 97 H 01/15/24 06:22 140 H 18 150/106 H 98 01/15/24 06:16 171 H 154/119 H 01/15/24 06:08 145 H 18 154/119 H 95 01/15/24 06:08 154/119 H 01/15/24 06:06 140 H 01/15/24 05:34 88 01/15/24 05:21 99 01/15/24 05:06 36.5 C 82 16 143/88 H 99 O2 Del Method 01/15/24 07:42 Room Air 01/15/24 07:42 Room Air 01/15/24 06:59 Room Air 01/15/24 06:50 01/15/24 06:22 01/15/24 06:16 01/15/24 06:08 01/15/24 06:08 01/15/24 06:06 01/15/24 05:34 01/15/24 05:21 Room Air 01/15/24 05:06 Room Air Laboratory Results 01/15/24 01/15/24 01/15/24 11:31 06:03 05:59 WBC RBC Hgb 12.7 Hct 37.2 MCV MCH MCHC RDW Std Deviation RDW Coeff of Sunita Plt Count MPV Immature Gran % (Auto) Neut % (Auto) Lymph % (Auto) [place] % (Auto) Eos % (Auto) Baso % (Auto) Neut # (Auto) Lymph # (Auto) [place] # (Auto) Eos # (Auto) Baso # (Auto) Immature Gran # (Auto) Platelet Estimate RBC Morphology PT 11.0 INR 1.0 APTT 27 PTT Ratio 1.0 Sodium Potassium 3.7 Chloride Carbon Dioxide Anion Gap BUN Creatinine Est Cr Clr Drug Dosing Est GFR ( Amer) Est GFR (Non-Af Amer) BUN/Creatinine Ratio Glucose Calcium Total Bilirubin AST 18 ALT Alkaline Phosphatase Troponin I High Sens Total Protein Albumin Globulin Albumin/Globulin Ratio Lipase Blood Type Blood Type Recheck O Negative Antibody Screen 01/15/24 01/15/24 05:56 05:30 WBC 12.37 H RBC 4.24 Hgb 13.2 Hct 38.8 MCV 91.5 MCH 31.1 MCHC 34.0 RDW Std Deviation 41.2 RDW Coeff of Sunita 12.6 Plt Count 151 MPV 10.8 Immature Gran % (Auto) 0.3 Neut % (Auto) 76.5 Lymph % (Auto) 16.0 [place] % (Auto) 6.7 Eos % (Auto) 0.3 Baso % (Auto) 0.2 Neut # (Auto) 9.45 H Lymph # (Auto) 1.98 [place] # (Auto) 0.83 H Eos # (Auto) 0.04 Baso # (Auto) 0.03 Immature Gran # (Auto) 0.04 Platelet Estimate Decreased L RBC Morphology Unremarkable PT Cancelled INR Cancelled APTT Cancelled PTT Ratio Cancelled Sodium 133 L Potassium TNP Chloride 101 Carbon Dioxide 23 Anion Gap 9 BUN 12 Creatinine 0.74 Est Cr Clr Drug Dosing 41.7 Est GFR ( Amer) 83.2 Est GFR (Non-Af Amer) 71.8 BUN/Creatinine Ratio 16.2 Glucose 103 H Calcium 9.4 Total Bilirubin 1.5 H AST TNP ALT 17 Alkaline Phosphatase 47 Troponin I High Sens 9.2 Total Protein 6.6 Albumin 4.4 Globulin 2.2 L Albumin/Globulin Ratio 2.0 Lipase 17 Blood Type O Negative Blood Type Recheck Antibody Screen NEGATIVE
[2024-01-15] MEDS ORDERED: SODIUM CHLORIDE 0.9% 250 ML IV PRN (10:57)
[2024-01-15] MEDS: METOPROLOL SUCC 25MG EXT REL TAB PO SCH (11:41)
[2024-01-15 11:52] LABS: Hematocrit (blood only) 37.2 % (37.0-47.0); Hemoglobin 12.7 g/dl (12.0-16.0)
--- NOTE | 2024-01-15 12:07 | Electrocardiogram Report ---
Test Reason : Blood Pressure : */* mmHG Vent. Rate : 81 BPM Atrial Rate : 81 BPM P-R Int : 190 ms QRS Dur : 76 ms QT Int : 372 ms P-R-T Axes : 40 20 -45 degrees QTcB Int : 432 ms Normal sinus rhythm Nonspecific ST and T wave abnormality Abnormal ECG When compared with ECG of 28-Sep-2015 14:03, Nonspecific T wave abnormality now evident in Inferior leads Confirmed by Salinas Garcia ([id number]) on 01/15/2024 12:07:25 PM Referred By: REFERRED SELF Confirmed By: Salinas Garcia
[2024-01-15] MEDS: LEVOTHYROXINE SODIUM 75 MCG TABLET PO SCH (12:32)
[2024-01-15 15:49] LABS: iSTAT Blood Urea Nitrogen 13 mg/dl (7-18); iSTAT Carbon Dioxide 25 mmol/L (24-31); iSTAT Chloride 101 mmol/L (101-112); iSTAT Creatinine 0.8 mg/dl (0.6-1.3); iSTAT Glucose 103 mg/dl (70-99); iSTAT Hematocrit 38 % (37-47); iSTAT Hemoglobin 12.9 g/dl (12.0-16.0); iSTAT Ionized Calcium 1.09 mmol/l (1.12-1.32); iSTAT Sodium 134 mmol/L (135-144)
[2024-01-15 16:08] VITALS: BP 145/86; RESP 18; O2SAT 95
[2024-01-15 16:10] VITALS: TEMP 97.9
--- NOTE | 2024-01-15 17:18 | Discharge Summary ---
Discharge Summary Date of Service January 15, 2024 Principal Dx & Hospital Course #1 = Principal Diagnosis (1) Bright red rectal bleeding: had fairly intense abdominal pain followed 4 hours later by bloody bowel movements and pain has been gone. History, as well as CT scan fit the most with ischemic colitis. Episode essentially resolved before I saw herafter her episode of rectal bleeding. No ongoing bleeding watching her all day, hemodynamically stable, benign exam. She was strongly desirous of going homewe discussed ongoing observation in the hospital into tomorrow to ensure no recurrent bleeding and no evolution of colitis symptoms versus home with close outpatient follow-up and a low threshold to return to the hospital with any worsening of pain or recurrence of bleedingand she quite reasonable but also quite strongly felt the need to go home. - Augmentin x 5 days - hold Eliquis for nowanticipate holding for about a week, but obviously this will be better determined based on how she is doing and outpatient follow-up - given her age, PCP discussion about risk/benefit of follow-up colonoscopy - return to the hospital with recurrence of pain or bleeding - safe/stable for home Notes For Next Care Provider Medication Changes From Visit augmentin x 5 days; holding eliquis x 1wk Admission HPI Per Admitting Provider Tere is an 88 year old female with PMH of atrial fibrillation, chronic venous insufficiency, abnormal KRISSY, hypothyroidism, thyroid nodule, spinal stenosis, SCC, basal cell carcinoma of face presenting with chief concern of bright red rectal bleeding which began yesterday afternoon at 4 PM. Reports she was playing golf with her friends until early afternoon, and toward the end of golf she began experiencing abdominal cramping and nausea, then had a large orange bowel movement - there was no micheal blood in her BM at that time. However, does report an episode of severe abdominal pain just prior to the bowel movement, in which she was bent over in pain, which was abated by the BM. She was evaluated by EMS and was stable, so she did not present to the hospital at that time. After going home, around 4 PM, she began having diarrhea with bright red blood. For the next 11 hours, she had about 1 BM with blood per hour (11 total BMs) before presenting to the ED around 4 AM this morning (01/14). She is on Eliquis for Afib, but she did not take her Eliquis last night d/t bleeding. Denies vomiting, rectal pain, fever, chest pain, SOB, lightheadedness, syncope, dizziness, recent illnesses, sick contacts. She has never had historical episodes of rectal bleeding. No family history of colon cancer. Her last colonoscopy was about 25 years ago, reports it was normal. She has no smoking history. She drinks about 1 drink per night. She is a full code. At time of our evaluation, she feels well. She is no longer experiencing abdominal pain/cramping. She has had 1 BM with blood since presenting to the ER, at which time she went into Afib with RVR. She was given a bolus of diltiazem, and her rhythm has been stable since. Updated Medication List Medication Instructions Recorded Confirmed Type cholecalciferol (vitamin D3) 50 2,000 units PO DAILY #30 caps 12/31/18 01/15/24 History mcg (2,000 unit) capsule cyanocobalamin (vitamin B-12) 2,000 mcg PO .COMPLEX 11/07/22 01/15/24 History 2,000 mcg tablet,extended release metoprolol succinate 25 mg 25 mg PO DAILY #90 tabs 07/07/23 01/15/24 Rx tablet,extended release 24 hr betamethasone dipropionate 0.05 % 1 applic topical BID #15 grams 09/04/23 01/15/24 Rx topical ointment lisinopril 10 mg tablet 10 mg PO DAILY #30 tabs 10/02/23 01/15/24 Rx apixaban 2.5 mg tablet (Eliquis) 2.5 mg PO BID #180 tabs 01/06/24 01/15/24 Rx amoxicillin 875 mg-potassium 1 tab PO BIDM #10 tabs 01/15/24 Rx clavulanate 125 mg tablet levothyroxine 75 mcg tablet 75 mcg PO DAILY #30 tabs 01/15/24 Rx Hospital Stay Data Consultations 01/15/24 07:05 ED Decision to Admit Stat Diagnostic Imagining Performed 01/15/24 05:12 CT abd pelvis IV con only Stat Pending Results Patient Have Any Pending Studies at Discharge: No Discharge Instructions Given to Patient (Per Discharging Provider) Gastrointestinal bleeding: - Your symptoms (pain followed 4 hours later by a significant amount of bleeding), combined with your CT scan finding of colon inflammation fits most with what we would call ischemic colitis. Fortunately this episode appears to have been quite mild, and appears to have already resolved. Given your home situation and strong desire to get back home, as long as you take appropriate precautions it is quite reasonable to get home today. - Typically with ischemic colitis episodes we will use a short course of antibi otics to cover for normal intestinal bacteriathe reason being that when the mucous membranes of your colon are somewhat compromised, it is at least theoretically possible for some of those bacteria to create an infection. To that end, pretty much anyone with ischemic colitis we will put on a course of antibiotics to reduce the chances that that happensthis is why you will be on 5 days of Augmentin (first dose tomorrow morning) - to allow your colon time to heal, we will have you hold off on your Eliquis for a short time. Given that the bleeding should heal over nicely, and given that the reason you are on the Eliquis is to protect your brain from a stroke related to the A-fib, over the long-term it is far more important to stay on the blood thinner as much as possible. To that end, I would recommend holding off on the Eliquis for a week (starting next ) and less either you have any recurrent bleeding (in which case we would want you seeing Dr. Angela or back in the hospital with us), or if you are doing so well when you see Dr. Angela next week he is able to "give you the greenlight" to start back on the Eliquis sooner - sometimes these episodes will have recurrences of bleeding, so while you look good, and it is safe/reasonable for you to go home tonight, realize that it could relapse (even though fortunately it is not likely to)and because of that if you have recurrent bleeding I would want you back in the hospital. Similarly if you have recurrent abdominal pain I would want you seen again. - Dr Angela will talk to you about whether or not a follow up colonoscopy will be warranted in your situation ("generically" it is with this kind of episode, but he'll be able to look at when your last scope was, and discuss risks/benefits/options with you further) - To do: --- Take Augmentin twice a day for 5 days, next dose tomorrow (01/15) in the morning --- follow-up with Dr. Angela/part of his team early next week --- come back to the hospital if you have recurrent bleeding, or recurrence of the abdominal pain you had prior to the bleeding --- hold off on taking your Eliquis for a week (unless Dr. Angela sees that you are doing well enough that it is okay to start sooner, or unless there is ongoing bleeding in which case we would have been directing you to not take it for longer) Total Time Total Time Spent Total Time Spent (In Minutes): <30
--- NOTE | 2024-01-15 17:18 | Billing Data ---
Date of Service January 15, 2024 Coding Level of Care Code 02247 IN/OBS DISCH 30 MIN/LESS
[2024-01-15] MEDS: AMOXICILLIN/CLAVULANATE 875 MG TAB PO SCH (17:33)
[2024-01-15 17:36] VITALS: PULSE 87
--- NOTE | 2024-01-16 15:17 | Electrocardiogram Report ---
Test Reason : Blood Pressure : */* mmHG Vent. Rate : 68 BPM Atrial Rate : 68 BPM P-R Int : 208 ms QRS Dur : 74 ms QT Int : 416 ms P-R-T Axes : 87 17 -32 degrees QTcB Int : 442 ms Sinus rhythm with Premature supraventricular complexes Nonspecific ST and T wave abnormality Abnormal ECG When compared with ECG of 15-Jan-2024 06:10, (unconfirmed) Sinus rhythm has replaced Atrial fibrillation Vent. rate has decreased by 75 bpm Confirmed by Salinas Garcia ([id number]) on 01/16/2024 3:16:55 PM Referred By: REFERRED SELF Confirmed By: Salinas Garcia
--- NOTE | 2024-01-16 15:17 | Electrocardiogram Report ---
Test Reason : Blood Pressure : */* mmHG Vent. Rate : 143 BPM Atrial Rate : * BPM P-R Int : * ms QRS Dur : 70 ms QT Int : 298 ms P-R-T Axes : * 16 -73 degrees QTcB Int : 459 ms Atrial fibrillation with rapid ventricular response Abnormal ECG When compared with ECG of 15-Jan-2024 05:41, Atrial fibrillation has replaced Sinus rhythm Vent. rate has increased by 62 bpm Confirmed by Salinas Garcia ([id number]) on 01/16/2024 3:17:01 PM Referred By: REFERRED SELF Confirmed By: Salinas Garcia
== END 2024-01-15 17:39 | disposition home or self-care (01) | DRG 394 ==
LOC: SUATTDRO → ED 05:04 → EDINP 07:23 → INTOOBSV 07:23 → 2W 11:19